=== PATIENT | male | born 1985 | race Caucasian/White ===

== ENCOUNTER 2023-11-01 08:28 | Emergency (ER) | payer MEDICAID ==
[~2023-11-01] VITALS: Ht 182.9 cm; Wt 90.7 kg
[2023-11-01 08:31] VITALS: BP_SYST 138; PULSE 120; RESP 18; TEMP 97.6; O2SAT 98
[2023-11-01] MEDS ORDERED: BUPRENORPHINE HCL/NALOXONE HCL 2-0.5 MG 1 EACH TAB.SUBL SL ONE ×2 (08:45)
[2023-11-01] MEDS ORDERED: BUPR8TAB4 SL (08:51)
== END 2023-11-01 08:35 ==
LOC: SED 08:28
DX: F11.23 Opioid dependence with withdrawal (principal); Z79.899 Other long term (current) drug therapy
CPT/HCPCS: 99283